=== PATIENT | male | born 1995 | race Caucasian/White ===

== ENCOUNTER 2020-10-05 18:27 | Emergency (ER) | payer BC ==
[2020-10-05 18:39] VITALS: BP 110/76; PULSE 78; TEMP 98.3; BMI 19.8
[2020-10-08 08:14] LABS: SARS-CoV-2 NAA Not Detected (Not Detected)
== END 2020-10-05 18:39 | disposition home or self-care (01) ==
LOC: FER 18:27
DX: R07.1 Chest pain on breathing (principal)
CPT/HCPCS: 99283-25; C9803; U0003; U0005